=== PATIENT | male | born 1965 | race Caucasian/White ===

== ENCOUNTER → 2017-04-05 | Outpatient (CLI) | payer OTHER ==
[~2017-04-05] MED LIST: IOHEXOL 240 MG/ML 50ML VIAL. ONE; IOHEXOL 240 MG/ML 50ML VIAL. PO ONE; IOHEXOL 300 MG/ML 75 ML VIAL. IV ONE
--- NOTE | 2017-04-05 11:11 | RAD ---
CT of the abdomen and pelvis with contrast, 04/05/2017: History: Weight loss Multidetector CT imaging was performed following oral and IV administration of contrast. Small gallstones are present along the dependent wall the gallbladder. There is no evidence of pericholecystic edema. No hepatic mass or bile duct dilatation is evident. The pancreas is unremarkable. The spleen is of normal size. There is a 13 mm cortical nodule arising from the lateral aspect of left kidney. It demonstrates an internal CT number of 40 Hounsfield units which is higher than that of a simple cyst. No other renal abnormality is detected. The adrenal glands are unremarkable. Moderate aortoiliac calcific plaquing is present. Coronary calcifications are noted. No abdominal or pelvic adenopathy is seen. Prostatic calcifications are present. The bowel loops are not dilated. No free fluid or free air is evident in the abdomen or pelvis. IMPRESSION: 1. Cholelithiasis. 2. Small left renal cortical nodule which may be a complicated cyst or solid nodule. Sonographic evaluation is suggested. 3. No acute abdominal or pelvic abnormality is detected. PQRS Compliance Statement: One or more of the following individualized dose reduction techniques were utilized for this examination: 1. Automated exposure control 2. Adjustment of the mA and/or kV according to patient size 3. Use of iterative reconstruction technique
== END | disposition home or self-care (01) ==
LOC: CT 08:53
PROVIDERS: ATTEND Internal Medicine Gastroenterology
DX: K80.80 Other cholelithiasis without obstruction (principal); R63.4 Abnormal weight loss
CPT/HCPCS: 74177; Q9966; Q9967

== ENCOUNTER 2017-11-15 22:33 | Emergency (ER) | payer OTHER ==
[~2017-11-15] VITALS: Ht 154.9 cm; Wt 59.4 kg
--- NOTE | 2017-11-15 22:59 | ED.ADGEN ---
Past History Past Medical History: Anemia, GI Bleed, Other Adult General Chief Complaint Chief Complaint " Dr. Lares sent me in... she said I had a really low Hgb.."... " I have been feeling really tired.. " " I did vomit up so dark stuff a month ago... 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 pain and office Hgb. of 5. Pt. has hx of prior duodenal ulcer. Patient has not been taking previously ordered Prilosec. Patient has been taking aspirin for headaches. Patient has been ingesting alcohol. Pt. does smoke. Pt. did have Hx. of two previous stools earlier last month that were very dark like prior GI bleeding episodes. Patient's last EGD and colonoscopy was done by Dr. Birch approximately 1 to 2 yrs ago. Pt. states he has not vomited blood recently or noticed dark stools. Pt. has been very fatigued. Pt. has had previous episodes of pancreatitis, duodenal ulcer, hypothyroid and anemia. Review of Systems Review of Systems Constitutional: Denies fever or chills [] Eyes: Denies change in visual acuity, redness, or eye pain [] HENT: Denies nasal congestion or sore throat [] Respiratory: Denies cough or shortness of breath [] Cardiovascular: No additional information not addressed in HPI [] GI: Denies abdominal pain, nausea, vomiting, bloody stools or diarrhea [] : Denies dysuria or hematuria [] Musculoskeletal: Denies back pain or joint pain []Complaints of fatigue Integument: Denies rash or skin lesions [] Neurologic: Denies headache, focal weakness or sensory changes [] Endocrine: Denies polyuria or polydipsia [] All other systems were reviewed and found to be within normal limits, except as documented in this note. Family History Family History HTN Current Medications Current Medications Current Medications Medications (Trade) Dose Ordered Sig/Claire Start Time Stop Time Status Last Admin Dose Admin Acetaminophen (Tylenol) 650 mg 1X ONCE 11/16/17 02:00 11/16/17 02:51 DC Diphenhydramine HCl (Benadryl) 50 mg 1X ONCE 11/16/17 01:45 11/16/17 02:51 DC 11/16/17 01:45 50 MG Famotidine (Pepcid Vial) 20 mg 1X ONCE 11/15/17 23:00 11/15/17 23:01 DC 11/15/17 23:15 20 MG Folic Acid (FOLIC ACID SYRINGE for ER) 5 mg STK-MED ONCE 11/16/17 01:35 11/16/17 01:36 DC Morphine Sulfate (Morphine 5mg Syringe) 5 mg 1X ONCE 11/16/17 03:15 11/16/17 03:16 UNV Multivitamins/ Minerals (Infuvite Adult) 10 ml STK-MED ONCE 11/16/17 01:34 11/16/17 01:35 DC Multivitamins/ Minerals 10 ml/ Folic Acid 1 mg/ Thiamine HCl 100 mg/Dextrose/ Lactated Ringer's 1,011.2 ml @ 0 mls/hr 1X ONCE 11/16/17 01:15 11/16/17 01:16 DC 11/16/17 01:45 999 MLS/HR Ondansetron HCl (Zofran) 4 mg 1X ONCE 11/15/17 23:00 11/15/17 23:01 DC 11/15/17 23:15 4 MG Oxymetazoline HCl (Afrin) 100 spray STK-MED ONCE 11/16/17 01:08 11/16/17 01:09 DC Phenylephrine HCl (Connor-Synephrine 1% Nasal) 300 drop STK-MED ONCE 11/16/17 01:08 11/16/17 01:09 DC Sodium Chloride 1,000 ml @ 1,000 mls/hr Q1H 11/15/17 23:00 11/15/17 23:59 DC 11/15/17 23:15 1,000 MLS/HR Thiamine HCl (Thiamine Im) 200 mg STK-MED ONCE 11/16/17 01:34 11/16/17 01:35 DC Allergies Allergies Allergies Coded Allergies Type Severity Reaction Last Updated Verified No Known Drug Allergies 04/05/17 No Physical Exam Physical Exam Constitutional: In acute distress, ill in appearance. [] HENT: Normocephalic, atraumatic, bilateral external ears normal, oropharynx moist, no oral exudates, nose normal. [] Eyes: PERRLA, EOMI, conjunctiva pale, no discharge. [] Neck: Normal range of motion, no tenderness, supple, no stridor. [] Cardiovascular: Tachycardia Heart rate regular rhythm, no murmur [] Lungs & Thorax: Bilateral breath sounds equal at apex with scattered wheezes on auscultation [] Abdomen: Bowel sounds normal, soft, no tenderness, no masses, no pulsatile masses. Rectal no gross blood. Hemorrhoids. Skin: Warm, dry, no erythema, no rash. Very pale. Back: No tenderness, no CVA tenderness. [] Extremities: No tenderness, no cyanosis, no clubbing, ROM intact, no edema. [] Tenia versicolor on abdomen vs ring worm Neurologic: Alert and oriented X 3, normal motor function, normal sensory function, no focal deficits noted. [] Psychologic: Affect anxious, judgement normal, mood normal. [] Current Patient Data Vital Signs Vital Signs Date Time Temp Pulse Resp B/P (MAP) Pulse Ox O2 Delivery O2 Flow Rate FiO2 11/16/17 02:50 98.2 89 15 107/48 (67) 99 Room Air Lab Results Laboratory Tests Test 11/15/17 23:15 11/15/17 23:45 White Blood Count 4.2 x10^3/uL (4.0-11.0) Red Blood Count 2.69 x10^6/uL (4.30-5.70) L Hemoglobin 5.7 g/dL (13.0-17.5) *L Hematocrit 19.1 % (39.0-53.0) *L Mean Corpuscular Volume 71 fL (79-100) L Mean Corpuscular Hemoglobin 21 pg (25-35) L Mean Corpuscular Hemoglobin Concent 30 g/dL (31-37) L Red Cell Distribution Width 29.6 % (11.5-14.5) H Platelet Count 208 x10^3/uL (140-400) Neutrophils (%) (Auto) 46 % (31-73) Lymphocytes (%) (Auto) 34 % (24-48) Monocytes (%) (Auto) 11 % (0-9) H Eosinophils (%) (Auto) 4 % (0-3) H Basophils (%) (Auto) 5 % (0-3) H Neutrophils # (Auto) 1.9 x10^3uL (1.8-7.7) Lymphocytes # (Auto) 1.4 x10^3/uL (1.0-4.8) Monocytes # (Auto) 0.5 x10^3/uL (0.0-1.1) Eosinophils # (Auto) 0.2 x10^3/uL (0.0-0.7) Basophils # (Auto) 0.2 x10^3/uL (0.0-0.2) Platelet Estimate Adequate (ADEQUATE) Hypochromasia Mod Anisocytosis Mod Microcytosis Mod Prothrombin Time 11.6 SEC (9.4-11.4) H Prothrombin Time INR 1.1 (0.9-1.1) PTT 22 SEC (23-33) L Sodium Level 143 mmol/L (136-145) Potassium Level 3.6 mmol/L (3.5-5.1) Chloride Level 106 mmol/L (98-107) Carbon Dioxide Level 26 mmol/L (21-32) Anion Gap 11 (6-14) Blood Urea Nitrogen 11 mg/dL (8-26) Creatinine 1.0 mg/dL (0.7-1.3) Estimated GFR (Cockcroft-Gault) 78.5 Glucose Level 100 mg/dL (70-99) H Calcium Level 8.7 mg/dL (8.5-10.1) Total Bilirubin 0.9 mg/dL (0.2-1.0) Direct Bilirubin 0.2 mg/dL (0.0-0.2) Aspartate Amino Transferase (AST) 46 U/L (15-37) H Alanine Aminotransferase (ALT) 31 U/L (16-63) Alkaline Phosphatase 62 U/L (46-116) Creatine Kinase 42 U/L (39-308) Creatine Kinase MB (Mass) < 0.5 ng/mL (0.0-3.6) Creatine Kinase MB Relative Index 1.2 % (0-4) Troponin I Quantitative < 0.017 ng/mL (0-0.055) Total Protein 7.3 g/dL (6.4-8.2) Albumin 3.6 g/dL (3.4-5.0) Amylase Level 84 U/L (25-115) Lipase 242 U/L (73-393) Ethyl Alcohol Level 236 mg/dL (0-10) H Urine Collection Type Unknown Urine Color Yellow Urine Clarity Clear Urine pH 5.5 Urine Specific [place] 1.020 Urine Protein Trace (NEG-TRACE) Urine Glucose (UA) Neg mg/dL (NEG) Urine Ketones (Stick) 15 mg/dL (NEG) Urine Blood Neg (NEG) Urine Nitrite Neg (NEG) Urine Bilirubin Neg (NEG) Urine Urobilinogen Dipstick 1 mg/dL (0.2 mg/dL) Urine Leukocyte Esterase Neg (NEG) Urine RBC 0 /HPF (0-2) Urine WBC Occ /HPF (0-4) Urine Squamous Epithelial Cells Occ /LPF Urine Bacteria 0 /HPF (0-FEW) Urine Opiates Screen Neg (NEG) Urine Methadone Screen Neg (NEG) Urine Barbiturates Neg (NEG) Urine Phencyclidine Screen Neg (NEG) Urine Amphetamine/Methamphetamine Neg (NEG) Urine Benzodiazepines Screen Neg (NEG) Urine Cocaine Screen Neg (NEG) Urine Cannabinoids Screen Neg (NEG) Urine Ethyl Alcohol Pos (NEG) EKG EKG My interpretation of EKG is sinus 86, with prolonged QT. No findings of acute STEMI with contra lateral changes.[] Radiology/Procedures Radiology/Procedures My interpretation of Acute Abd= non specific bowel gas pattern. [No acute cardiopulmonary changes] CXR Post NG placement- show adequate placement Course & Med Decision Making Course & Med Decision Making Pertinent Labs and Imaging studies reviewed. (See chart for details) NG place by al- no gross return of GI blood./ Discussed presentation, testing and tx. plan with Dr. Yoder- will accept pt in transfer to [facility], for GI consult. [] Final Impression Final Impression 1. GI bleed[] 2. Critical Anemia with microcytosis hypochromic indices- Hgb. 5.7 3. Elevated alcohol level 236 Problems: Dragon Disclaimer Dragon Disclaimer This electronic medical record was generated, in whole or in part, using a voice recognition dictation system. MIKE IRWIN MD Nov 15, 2017 22:59
[2017-11-15] MEDS ORDERED: IV NORMAL SALINE 1,000ML 1,000 ML IV SCH (23:00)
[2017-11-15] MEDS ORDERED: ONDANSETRON PF 4 MG/2 ML VIAL. IV ONE (23:00)
[2017-11-15] MEDS ORDERED: FAMOTIDINE 20 MG/2 ML VIAL IVP ONE (23:00)
--- NOTE | 2017-11-15 23:18 | EKG ---
[address] [address] Test Date: 2017-11-15 Test Time: 23:09:27 Pat Name: JA KENT Department: Room: Gender: M Baseball Player: PUNEET : 1965 Requested By: MIKE IRWIN Order Number: [id number] Reading MD: Edgardo Valiente Measurements Intervals [place] Rate: 86 P: 0 SC: 174 QRS: 10 QRSD: 80 T: 9 QT: 402 QTc: 484 Interpretive Statements SINUS RHYTHM PROLONGED QT Electronically Signed On 11-25-2017 16:13:20 CDT by Edgardo Valiente
[2017-11-16 00:03] LABS: BASO # 0.2 x10^3/uL (0.0-0.2); BASO % 5 % (0-3); EOS # 0.2 x10^3/uL (0.0-0.7); EOS % 4 % (0-3); LYMPH # 1.4 x10^3/uL (1.0-4.8); LYMPH % 34 % (24-48); MEAN CORPUSCULAR HEMOGLOBIN 21 pg (25-35); MEAN CORPUSCULAR HGB CONC 30 g/dL (31-37); MEAN CORPUSCULAR VOLUME 71 fL (79-100); MONO # 0.5 x10^3/uL (0.0-1.1); MONO % 11 % (0-9); NEUT # 1.9 x10^3uL (1.8-7.7); NEUT % 46 % (31-73); PLATELET COUNT 208 x10^3/uL (140-400); RED BLOOD COUNT 2.69 x10^6/uL (4.30-5.70); RED CELL DISTRIBUTION WIDTH 29.6 % (11.5-14.5); WHITE BLOOD COUNT 4.2 x10^3/uL (4.0-11.0)
[2017-11-16 00:11] LABS: HEMOGLOBIN 5.7 g/dL (13.0-17.5)
[2017-11-16 00:12] LABS: HEMATOCRIT 19.1 % (39.0-53.0)
[2017-11-16 00:15] LABS: BARBITURATES NEG (NEG); BENZODIAZEPINES NEG (NEG); CANNABINOIDS NEG (NEG); COCAINE NEG (NEG); METHADONE NEG (NEG); OPIATES NEG (NEG); PHENCYCLIDINE NEG (NEG)
[2017-11-16 00:18] LABS: BILIRUBIN,URINE NEG (NEG); CLARITY,URINE CLEAR; COLOR,URINE YELLOW; GLUCOSE,URINE NEG (NEG)
[2017-11-16 00:20] LABS: BACTERIA,URINE 0 /HPF (0-FEW); NITRITE,URINE NEG (NEG); RBC,URINE 0 /HPF (0-2); SQUAMOUS EPITHELIAL CELL,UR OCC /LPF; UROBILINOGEN,URINE 1 mg/dL (0.2 mg/dL); WBC,URINE OCC /HPF (0-4)
[2017-11-16 00:23] LABS: PLT ESTIMATE ADEQUATE (ADEQUATE)
[2017-11-16 00:24] LABS: ANISOCYTOSIS MOD; HYPOCHROMIA MOD; MICROCYTOSIS MOD
[2017-11-16 00:26] LABS: AMPHETAMINE/METHAMPHETAMINE NEG (NEG)
[2017-11-16 00:40] LABS: ALBUMIN 3.6 g/dL (3.4-5.0); ALK PHOS 62 U/L (46-116); ALT (SGPT) 31 U/L (16-63); ANION GAP 11 (6-14); AST (SGOT) 46 U/L (15-37); BLOOD UREA NITROGEN 11 mg/dL (8-26); CALCIUM 8.7 mg/dL (8.5-10.1); CARBON DIOXIDE 26 mmol/L (21-32); CHLORIDE 106 mmol/L (98-107); DIRECT BILIRUBIN 0.2 mg/dL (0.0-0.2); GFR 78.5; GLUCOSE 100 mg/dL (70-99); LIPASE 242 U/L (73-393); POTASSIUM 3.6 mmol/L (3.5-5.1); SODIUM 143 mmol/L (136-145); TOTAL BILIRUBIN 0.9 mg/dL (0.2-1.0); TOTAL PROTEIN 7.3 g/dL (6.4-8.2)
[2017-11-16] MEDS ORDERED: PHENYLEPHRINE 1% NASAL DROP 30ML BOTTLE. NS ONE (01:08)
[2017-11-16] MEDS ORDERED: OXYMETAZOLINE 0.05% NASAL SPRAY 15ML BOTTLE. NS ONE (01:08)
[2017-11-16] MEDS ORDERED: MVI, ADULT NO.4 WITH VIT K 10 ML, FOLIC ACID 1 MG, THIAMINE 100 MG in IV DEXTROSE 5%-LA... IV ONE ×4 (01:15)
[2017-11-16] MEDS ORDERED: MVI, ADULT NO.4 WITH VIT K 10 ML VIAL IV ONE (01:34)
[2017-11-16] MEDS ORDERED: THIAMINE IM 200 MG/2 ML VIAL. IM ONE (01:34)
[2017-11-16] MEDS ORDERED: FOLIC ACID 5 MG/ML SYRINGE for ER IV ONE (01:35)
[2017-11-16] MEDS ORDERED: diphenhydrAMINE 50 MG/ML VIAL IVP ONE (01:45)
[2017-11-16] MEDS ORDERED: ACETAMINOPHEN 650 MG SUPP.RECT. PR ONE (02:00)
[2017-11-16 02:50] VITALS: BP 107/48
[2017-11-16] MEDS ORDERED: MORPHINE SULFATE 5 MG/ML SYRINGE. ONE (03:06)
[2017-11-16] MEDS ORDERED: MORPHINE SULFATE 5 MG/ML SYRINGE. SQ ONE (03:30)
[2017-11-16 06:05] LABS: GASTRIC OB PAT POSITIVE (NEG)
--- NOTE | 2017-11-16 07:14 | RAD ---
NISA, 11/16/2017, 1:55 AM: History: Check NG tube placement AP view of the upper abdomen demonstrates an NG tube extending into the body of the stomach. The gas pattern in the upper abdomen is unremarkable. IMPRESSION: The NG tube is in satisfactory position extending into the stomach.
--- NOTE | 2017-11-16 07:15 | RAD ---
Acute abdomen series with chest, 3 views, 11/15/2017: History: Chest and abdominal pain The abdominal gas pattern is unremarkable without evidence of obstruction. No free air is seen in the abdomen. There is no evidence of organomegaly. Lower pelvic calcifications are compatible with phleboliths. The heart size is normal. The lungs are clear. There is no evidence of pleural fluid. IMPRESSION: No acute abdominal abnormality is detected.
== END 2017-11-16 03:06 | disposition short-term general hospital (02) ==
LOC: ER 22:33
DX: K92.2 Gastrointestinal hemorrhage, unspecified (principal); D50.9 Iron deficiency anemia, unspecified; R78.0 Finding of alcohol in blood
CPT/HCPCS: 36415; 36430; 43752; 74018; 74022; 80048; 80076; 80307; 81001; 82150; 82271; 82553; 83690; 84484; 85025; 85045; 85610; 85730; 86850; 86900; 86901; 86920; 93005; 96361; 96365; 96375; 99285; G0480; J1200; J2405; P9016; S0028; G0479; J7030

== ENCOUNTER → 2017-11-29 | Outpatient (CLI) | payer OTHER ==
[2017-11-16 02:50] VITALS: BP 107/48
[2017-11-29 09:34] LABS: BASO # 0.2 x10^3/uL (0.0-0.2); BASO % 3 % (0-3); EOS # 0.3 x10^3/uL (0.0-0.7); EOS % 6 % (0-3); HEMOGLOBIN 10.5 g/dL (13.0-17.5); LYMPH # 0.9 x10^3/uL (1.0-4.8); LYMPH % 15 % (24-48); MEAN CORPUSCULAR HEMOGLOBIN 25 pg (25-35); MEAN CORPUSCULAR HGB CONC 31 g/dL (31-37); MEAN CORPUSCULAR VOLUME 80 fL (79-100); MONO # 0.5 x10^3/uL (0.0-1.1); MONO % 8 % (0-9); NEUT # 4.1 x10^3uL (1.8-7.7); NEUT % 68 % (31-73); PLATELET COUNT 139 x10^3/uL (140-400); RED BLOOD COUNT 4.26 x10^6/uL (4.30-5.70); RED CELL DISTRIBUTION WIDTH 31.2 % (11.5-14.5); WHITE BLOOD COUNT 6.1 x10^3/uL (4.0-11.0)
[2017-11-29 10:29] LABS: ANISOCYTOSIS MARKED; HYPOCHROMIA MOD; PLT ESTIMATE ADEQUATE (ADEQUATE); POLYCHROMASIA SLIGHT; SCHISTOCYTES FEW; TEAR DROP CELLS OCC
[2017-11-29 10:30] LABS: MICROCYTOSIS SLIGHT
== END | disposition home or self-care (01) ==
LOC: PMG 09:02
PROVIDERS: ATTEND Family Medicine
DX: K92.2 Gastrointestinal hemorrhage, unspecified (principal); D50.9 Iron deficiency anemia, unspecified
CPT/HCPCS: 36415; 85025

== ENCOUNTER → 2018-03-16 | Outpatient (CLI) | payer OTHER ==
[2018-03-16 10:14] LABS: BASO # 0.1 x10^3/uL (0.0-0.2); BASO % 1 % (0-3); EOS % 0 % (0-3); HEMATOCRIT 24.1 % (39.0-53.0); HEMOGLOBIN 8.2 g/dL (13.0-17.5); LYMPH # 1.3 x10^3/uL (1.0-4.8); LYMPH % 12 % (24-48); MEAN CORPUSCULAR HEMOGLOBIN 35 pg (25-35); MEAN CORPUSCULAR HGB CONC 34 g/dL (31-37); MEAN CORPUSCULAR VOLUME 101 fL (79-100); MONO # 0.8 x10^3/uL (0.0-1.1); MONO % 7 % (0-9); NEUT # 8.4 x10^3uL (1.8-7.7); NEUT % 79 % (31-73); PLATELET COUNT 123 x10^3/uL (140-400); RED BLOOD COUNT 2.39 x10^6/uL (4.30-5.70); RED CELL DISTRIBUTION WIDTH 16.7 % (11.5-14.5); WHITE BLOOD COUNT 10.6 x10^3/uL (4.0-11.0)
== END | disposition home or self-care (01) ==
LOC: PMG 09:46
PROVIDERS: ATTEND Family Medicine
DX: K92.1 Melena (principal)
CPT/HCPCS: 36415; 85025

== ENCOUNTER → 2018-06-08 | Outpatient (CLI) | payer OTHER ==
[2018-06-08 13:55] LABS: BASO # 0.1 x10^3/uL (0.0-0.2); BASO % 1 % (0-3); EOS # 0.1 x10^3/uL (0.0-0.7); EOS % 1 % (0-3); LYMPH # 1.4 x10^3/uL (1.0-4.8); LYMPH % 18 % (24-48); MEAN CORPUSCULAR HEMOGLOBIN 31 pg (25-35); MEAN CORPUSCULAR HGB CONC 33 g/dL (31-37); MEAN CORPUSCULAR VOLUME 94 fL (79-100); MONO # 0.5 x10^3/uL (0.0-1.1); MONO % 7 % (0-9); NEUT # 5.4 x10^3uL (1.8-7.7); NEUT % 72 % (31-73); PLATELET COUNT 102 x10^3/uL (140-400); RED BLOOD COUNT 3.18 x10^6/uL (4.30-5.70); RED CELL DISTRIBUTION WIDTH 20.8 % (11.5-14.5); WHITE BLOOD COUNT 7.5 x10^3/uL (4.0-11.0)
[2018-06-08 14:18] LABS: PLT ESTIMATE DECREASED (ADEQUATE)
[2018-06-08 14:19] LABS: ANISOCYTOSIS PRESENT; PAPPENHEIMER BODIES PRESENT
[2018-06-08 14:24] LABS: OVALOCYTES PRESENT; TEAR DROP CELLS PRESENT
[2018-06-08 14:25] LABS: HYPOCHROMIA SLIGHT
== END | disposition home or self-care (01) ==
LOC: PMG 13:20
PROVIDERS: ATTEND Internal Medicine Gastroenterology
DX: D64.89 Other specified anemias (principal)
CPT/HCPCS: 36415; 85025

== ENCOUNTER 2018-07-31 08:05 | Emergency (ER) | payer OTHER ==
[~2018-07-31] VITALS: Ht 162.6 cm; Wt 54.4 kg
[2018-07-31] MEDS ORDERED: ONDANSETRON PF 4 MG/2 ML VIAL. IV ONE (08:15)
[2018-07-31] MEDS ORDERED: PANTOPRAZOLE IV 80 MG in IV NORMAL SALINE 100ML 100 ML IV ONE (08:15)
[2018-07-31 08:35] LABS: BASO # 0.1 x10^3/uL (0.0-0.2); BASO % 2 % (0-3); EOS # 0.1 x10^3/uL (0.0-0.7); EOS % 1 % (0-3); HEMATOCRIT 23.8 % (39.0-53.0); HEMOGLOBIN 8.1 g/dL (13.0-17.5); LYMPH # 0.9 x10^3/uL (1.0-4.8); LYMPH % 18 % (24-48); MEAN CORPUSCULAR HEMOGLOBIN 34 pg (25-35); MEAN CORPUSCULAR HGB CONC 34 g/dL (31-37); MEAN CORPUSCULAR VOLUME 101 fL (79-100); MONO # 0.5 x10^3/uL (0.0-1.1); MONO % 9 % (0-9); NEUT # 3.7 x10^3uL (1.8-7.7); NEUT % 71 % (31-73); PLATELET COUNT 62 x10^3/uL (140-400); RED BLOOD COUNT 2.36 x10^6/uL (4.30-5.70); RED CELL DISTRIBUTION WIDTH 18.9 % (11.5-14.5); WHITE BLOOD COUNT 5.2 x10^3/uL (4.0-11.0)
[2018-07-31 08:51] LABS: ALBUMIN 2.9 g/dL (3.4-5.0); ALBUMIN/GLOBULIN RATIO 0.7 (1.0-1.7); CALCIUM 8.2 mg/dL (8.5-10.1); CREATININE 1.2 mg/dL (0.7-1.3); GFR 63.3; TOTAL PROTEIN 6.9 g/dL (6.4-8.2)
[2018-07-31 08:53] LABS: POTASSIUM 2.8 mmol/L (3.5-5.1)
[2018-07-31 08:54] LABS: TOTAL BILIRUBIN 4.2 mg/dL (0.2-1.0)
[2018-07-31] MEDS ORDERED: POTASSIUM CL 40MEQ D5-0.45NACL 1,000 ML IV ONE (09:00)
[2018-07-31 09:32] VITALS: BP 131/72
--- NOTE | 2018-07-31 11:37 | ED.ADGEN ---
Past History Past Medical History: Anemia, GI Bleed, Other Past Surgical History: No Surgical History Alcohol Use: Heavy Drug Use: None Adult General Chief Complaint Chief Complaint Coffee-ground emesis, melena HPI HPI Patient is a 53-year-old male with history of GI bleed who presents with coffee- ground emesis, and melena starting approximately 2 days ago. Patient reports multiple episodes yesterday and earlier this morning. Reports mild dyspnea generalized weakness, but denies chest pain abdominal pain and hematemesis. Patient reportedly was seen at this facility approximately 2 months ago for the same required transfusion was transferred to [facility]. He is required previous mass transfusion protocol. Denies chest pain shortness of breath. Suspected history of chronic alcohol abuse. Vital signs stable on EMS arrival Review of Systems Review of Systems ROS as per HPI [] All other systems were reviewed and found to be within normal limits, except as documented in this note. Current Medications Current Medications Current Medications Medications (Trade) Dose Ordered Sig/Claire Start Time Stop Time Status Last Admin Dose Admin Ondansetron HCl (Zofran) 4 mg 1X ONCE 07/31/18 08:15 07/31/18 08:16 DC 07/31/18 08:37 4 MG Pantoprazole Sodium 80 mg/ Sodium Chloride 100 ml @ 10 mls/hr 1X ONCE 07/31/18 08:15 07/31/18 18:14 07/31/18 08:37 10 MLS/HR Potassium Chloride/Dextrose/ Sod Cl 1,000 ml @ 75 mls/hr 1X ONCE 07/31/18 09:00 07/31/18 22:19 Allergies Allergies Allergies Coded Allergies Type Severity Reaction Last Updated Verified No Known Drug Allergies 04/05/17 No Physical Exam Physical Exam Constitutional: Well developed, well nourished, no acute distress, non-toxic appearance. [] HENT: Normocephalic, atraumatic, bilateral external ears normal, oropharynx moist, no oral exudates, nose normal. [] Eyes: PERRLA, EOMI, conjunctiva normal, no discharge. [] Neck: Normal range of motion. [] Cardiovascular:Heart rate regular rhythm, no murmur [] Lungs & Thorax: Bilateral breath sounds clear to auscultation [] Abdomen: Bowel sounds normal, soft, no tenderness. [] Skin: Warm, dry, no erythema. [] Back: No tenderness. [] Extremities: No tenderness, no cyanosis, no clubbing, ROM intact, no edema. [] Neurologic: Alert and oriented X 3, normal motor function, normal sensory function, no focal deficits noted. [] Psychologic: Affect normal, judgement normal, mood normal. [] Current Patient Data Vital Signs Vital Signs Date Time Temp Pulse Resp B/P (MAP) Pulse Ox O2 Delivery O2 Flow Rate FiO2 07/31/18 09:32 99.9 97 98 Room Air 07/31/18 08:16 18 131/72 (91) Lab Results Laboratory Tests Test 07/31/18 08:16 White Blood Count 5.2 x10^3/uL (4.0-11.0) Red Blood Count 2.36 x10^6/uL (4.30-5.70) L Hemoglobin 8.1 g/dL (13.0-17.5) L Hematocrit 23.8 % (39.0-53.0) L Mean Corpuscular Volume 101 fL (79-100) H Mean Corpuscular Hemoglobin 34 pg (25-35) Mean Corpuscular Hemoglobin Concent 34 g/dL (31-37) Red Cell Distribution Width 18.9 % (11.5-14.5) H Platelet Count 62 x10^3/uL (140-400) L Neutrophils (%) (Auto) 71 % (31-73) Lymphocytes (%) (Auto) 18 % (24-48) L Monocytes (%) (Auto) 9 % (0-9) Eosinophils (%) (Auto) 1 % (0-3) Basophils (%) (Auto) 2 % (0-3) Neutrophils # (Auto) 3.7 x10^3uL (1.8-7.7) Lymphocytes # (Auto) 0.9 x10^3/uL (1.0-4.8) L Monocytes # (Auto) 0.5 x10^3/uL (0.0-1.1) Eosinophils # (Auto) 0.1 x10^3/uL (0.0-0.7) Basophils # (Auto) 0.1 x10^3/uL (0.0-0.2) Prothrombin Time 15.0 SEC (9.4-11.4) H Prothrombin Time INR 1.5 (0.9-1.1) H Sodium Level 135 mmol/L (136-145) L Potassium Level 2.8 mmol/L (3.5-5.1) *L Chloride Level 97 mmol/L (98-107) L Carbon Dioxide Level 27 mmol/L (21-32) Anion Gap 11 (6-14) Blood Urea Nitrogen 22 mg/dL (8-26) Creatinine 1.2 mg/dL (0.7-1.3) Estimated GFR (Cockcroft-Gault) 63.3 BUN/Creatinine Ratio 18 (6-20) Glucose Level 117 mg/dL (70-99) H Calcium Level 8.2 mg/dL (8.5-10.1) L Total Bilirubin 4.2 mg/dL (0.2-1.0) H Aspartate Amino Transferase (AST) 206 U/L (15-37) H Alanine Aminotransferase (ALT) 38 U/L (16-63) Alkaline Phosphatase 91 U/L (46-116) Ammonia 34 mcmol/L (11-34) Total Protein 6.9 g/dL (6.4-8.2) Albumin 2.9 g/dL (3.4-5.0) L Albumin/Globulin Ratio 0.7 (1.0-1.7) L Ethyl Alcohol Level < 10 mg/dL (0-10) EKG EKG [EKG: reviewed] Radiology/Procedures Radiology/Procedures [] Course & Med Decision Making Course & Med Decision Making Pertinent Labs and Imaging studies reviewed. (See chart for details) [No emesis in the ED. VSS. Protonix started. Dr. Bhakta accepts to [facility]] Final Impression Final Impression [1. Upper GI bleed 2. blood loss anemia] Dragon Disclaimer Dragon Disclaimer This electronic medical record was generated, in whole or in part, using a voice recognition dictation system. HARIS RIZVI DO Jul 31, 2018 11:37
== END 2018-07-31 11:25 | disposition short-term general hospital (02) ==
LOC: ER 08:05
DX: K92.2 Gastrointestinal hemorrhage, unspecified (principal); D50.0 Iron deficiency anemia secondary to blood loss (chronic); F10.20 Alcohol dependence, uncomplicated; Y90.0 Blood alcohol level of less than 20 mg/100 ml
CPT/HCPCS: 36415; 80053; 82140; 85025; 85610; 96365; 96366; 96375; 99285; C9113; G0480; J2405